=== PATIENT | female | born 1985 | race Two or more races ===

== ENCOUNTER 2022-03-07 05:27 | Inpatient (IN) | payer OTHER ==
[~2022-03-07] VITALS: Ht 162.6 cm; Wt 74.8 kg
[2022-03-07] MEDS ORDERED: PRENATAL TABLE1 EAC3 PO (06:39)
[2022-03-07] MEDS ORDERED: SYNTHROID100 MCG PO (06:40)
== END 2022-03-09 17:18 | disposition home or self-care (01) | DRG 807 ==
LOC: LDR 05:27 → OB/GYN 05:27 → LDR 10:33 → OB/GYN 15:02
PROVIDERS: ADMIT Obstetrics & Gynecology; ATTEND Obstetrics & Gynecology
PROC: 10E0XZZ Delivery of Products of Conception, External Approach (ICD-10-PCS; principal; 2022-03-07)
PROC: 0KQM0ZZ Repair Perineum Muscle, Open Approach (ICD-10-PCS; 2022-03-07)
PROC: 4A1HXCZ Monitoring of Products of Conception, Cardiac Rate, External Approach (ICD-10-PCS; 2022-03-07)
PROC: 3E033VJ Introduction of Other Hormone into Peripheral Vein, Percutaneous Approach (ICD-10-PCS; 2022-03-07)
PROC: 3E0P7VZ Introduction of Hormone into Female Reproductive, Via Natural or Artificial Opening (ICD-10-PCS; 2022-03-07)
DX: O70.1 Second degree perineal laceration during delivery (principal); Z37.0 Single live birth; Z3A.39 39 weeks gestation of pregnancy; Z20.822 Contact with and (suspected) exposure to COVID-19

== ENCOUNTER 2023-03-19 08:02 | Emergency (ER) | payer OTHER ==
[~2023-03-19] VITALS: Ht 162.6 cm; Wt 69.9 kg
[~2023-03-19 08:02] MED LIST: PRENATAL TABLE1 EAC3 PO; SYNTHROID100 MCG PO
== END 2023-03-19 09:20 | disposition home or self-care (01) ==
LOC: ER 08:02
DX: J06.9 Acute upper respiratory infection, unspecified (principal)

== ENCOUNTER → 2023-10-23 | Day surgery (SDC) | payer OTHER ==
[2023-10-20 10:51] LABS: HEMOGLOBIN 12.2 g/dL (12.0-15.00); MEAN CELL VOLUME 83.7 fL (80.00-100.00); MEAN CORPUSCULAR HEMOGLOBIN 28.5 pg (27.00-32.0); PLATELET COUNT 270 K/uL (150-450)
[2023-10-20 11:00] LABS: PH,URINE 6.5 (5.0-8.0); URINE APPEARANCE Clear; URINE BILIRRUBIN Negative (NEGATIVE); URINE BLOOD Negative; URINE COLOR Yellow; URINE GLUCOSE Negative (NEGATIVE); URINE LEUKOCYTE Negative; URINE NITRATE Negative; URINE PROTEIN Negative (NEGATIVE); URINE UROBILINOGEN 0.2 E.U./dl
[2023-10-20 11:07] LABS: URINE BACTERIA 12.5 uL (0.0-1933); URINE RBC 11.4 uL (0.0-20.8); URINE WBC 2.1 uL (0.0-23.2)
[2023-10-20 11:24] LABS: BILIRUBIN TOTAL 0.47 mg/dL (0.3-1.2); CALCIUM 8.9 mg/dL (8.5-10.1); CREATININE SERUM 0.64 mg/dL (0.55-1.02); GLOBULINA 3.5 G/DL (2.4-3.5); POTASSIUM 4.32 mEq/L (3.5-5.1); TOTAL PROTEIN 7.5 gm/dL (6.4-8.2)
[2023-10-20 11:29] LABS: INR 0.98; PARTIAL THROMBOPLASTIN TIME 32.3 SECONDS (22.0-34.0)
[2023-10-20 11:35] LABS: PROTHROMBIN TIME 10.3 SECONDS (9.0-11.5)
[~2023-10-23] MED LIST changes: +ONDANSETRON HCL 2 MG/ML VIAL IV ONE; +POVIDONE-IODINE 118 ML BOTT TOP ONE
== END | disposition home or self-care (01) ==
LOC: CIR.AMB 05:50
PROVIDERS: ATTEND Obstetrics & Gynecology
DX: N84.0 Polyp of corpus uteri (principal); N93.8 Other specified abnormal uterine and vaginal bleeding; N72 Inflammatory disease of cervix uteri